=== PATIENT | female | born 1940 | race American Indian/Alaskan Native ===

== ENCOUNTER 2018-05-04 10:09 | Outpatient (CLI) | payer MEDICARE | END 2018-05-04 10:10 | disposition home or self-care (01) | LOC: C.LAB 10:09 ==

== ENCOUNTER → 2018-07-26 | Outpatient (CLI) | payer MEDICARE | LOC: C.MAMMO 14:03 | DX: Z12.31 Encounter for screening mammogram for malignant neoplasm of breast (principal) ==